=== PATIENT | male | born 1980 | race Caucasian/White ===

== ENCOUNTER 2017-03-02 10:41 | Emergency (ER) | payer OTHER ==
--- NOTE | ~2017-03-02 | EKG ---
PATIENT: ELVIRA MARTINEZ UNIT #: [id number] Ventricular Rate: 73 BPM Atrial Rate: 73 BPM P-R Interval: 108 ms QRS Duration: 96 ms Q-T Interval: 394 ms QTC Calculation(Bezet): 434 ms Calculated R Blair: 61 degrees Calculated T Blair: 53 degrees Diagnosis Line: Sinus rhythm with short LA Diagnosis Line: Otherwise normal ECG Diagnosis Line: No previous ECGs available Diagnosis Line: Confirmed by JU JHAVERI MD ([id number]) on Diagnosis Line: 03/09/2017 9:00:02 AM INTERPRETING MD: EMILIO CAMARENA
[2017-03-02] MEDS ORDERED: IBS MED (10:50)
[2017-03-02] MEDS ORDERED: BP PILL (10:50)
== END 2017-03-02 11:45 | disposition home or self-care (01) ==
LOC: SED 10:41
DX: F41.9 Anxiety disorder, unspecified (principal); F17.210 Nicotine dependence, cigarettes, uncomplicated
CPT/HCPCS: 93005; 96372; 99283; J1885